=== PATIENT | male | born 1975 | race Caucasian/White ===

== ENCOUNTER 2021-11-16 14:34 | Outpatient (RCR) | payer OTHER ==
[~2021-11-16 14:34] MED LIST: METHYLPHENIDATE; TUSS PO; TYLENOL 500MG500 MG PO; ZITHROMAX Z PA250 MG PO
== END 2021-11-18 ==
LOC: WSOH
DX: S29.012A Strain of muscle and tendon of back wall of thorax, initial encounter (principal); Y99.0 Civilian activity done for income or pay; Z98.890 Other specified postprocedural states; F17.210 Nicotine dependence, cigarettes, uncomplicated

== ENCOUNTER 2021-11-23 08:59 | Outpatient (RCR) | payer OTHER | END 2021-11-24 09:53 | LOC: WSOH 08:59 | DX: S80.02XD Contusion of left knee, subsequent encounter (principal); Y99.0 Civilian activity done for income or pay ==